=== PATIENT | female | born 1990 | race Caucasian/White ===

== ENCOUNTER 2017-01-24 19:35 | Emergency (ER) | payer OTHER ==
[~2017-01-24] VITALS: Ht 175.3 cm; Wt 91.0 kg
[2017-01-24 19:50] VITALS: BP 127/80
--- NOTE | 2017-01-24 19:53 | ED.ADGEN ---
Adult General Chief Complaint Chief Complaint " I dropped a glass of sweet tea.. and was trying to clean it up.. and stepped on the glass... and got this laceration to my Rt. 4th toe.. I would not get it to stop bleeding... I even used wound glue on it..." HPI HPI Patient is a 26 year old female who presents with above hx and complaints of a 1 centimeter laceration to right fourth toe pad. Injury occurred earlier tonight. Patient is normally healthy. Patient does not remember last tetanus shot. Distal neurovascular intact. No history of coagulopathy. No travel or ill contacts. Review of Systems Review of Systems Constitutional: Denies fever or chills [] Eyes: Denies change in visual acuity, redness, or eye pain [] HENT: Denies nasal congestion or sore throat [] Respiratory: Denies cough or shortness of breath [] Cardiovascular: No additional information not addressed in HPI [] GI: Denies abdominal pain, nausea, vomiting, bloody stools or diarrhea [] : Denies dysuria or hematuria [] Musculoskeletal: Denies back pain or joint pain [] Integument: Denies rash or skin lesions [] complaints of 1 cm laceration to right fourth toe Neurologic: Denies headache, focal weakness or sensory changes [] Endocrine: Denies polyuria or polydipsia [] Family History Family History Noncontributory Current Medications Current Medications Current Medications Medications (Trade) Dose Ordered Sig/Vidal Start Time Stop Time Status Last Admin Dose Admin Diphtheria/ Tetanus/Acell Pertussis (Boostrix) 0.5 ml ONCE ONCE 01/24/17 20:30 01/24/17 20:31 DC 01/24/17 21:01 0.5 ML Hydrocodone Bitartrate/ Ibuprofen (Vicoprofen 7.5-200) 2 tab 1X ONCE 01/24/17 20:45 01/24/17 20:46 DC 01/24/17 20:59 2 TAB Allergies Allergies Allergies Coded Allergies Type Severity Reaction Last Updated Verified Penicillins Allergy Unknown 01/24/17 Yes amoxicillin Allergy Unknown 01/24/17 Yes tramadol Allergy Unknown 01/24/17 Yes Physical Exam Physical Exam Constitutional: Well developed, well nourished, moderate distress, non-toxic appearance. [] HENT: Normocephalic, atraumatic, bilateral external ears normal, oropharynx moist, no oral exudates, nose normal. [] Eyes: PERRLA, EOMI, conjunctiva normal, no discharge. [] Neck: Normal range of motion, no tenderness, supple, no stridor. [] Cardiovascular:Heart rate regular rhythm, no murmur [] Lungs & Thorax: Bilateral breath sounds clear to auscultation [] Abdomen: Bowel sounds normal, soft, no tenderness, no masses, no pulsatile masses. [] Skin: Warm, dry, no erythema, no rash. [] Back: No tenderness, no CVA tenderness. [] Extremities: Right fourth toe tenderness, no cyanosis, no clubbing, ROM intact, no edema. Right fourth toe laceration as per history of present illness. Neurologic: Alert and oriented X 3, normal motor function, normal sensory function, no focal deficits noted. [] Psychologic: Affect normal, judgement normal, mood normal. [] Current Patient Data Vital Signs Vital Signs Date Time Temp Pulse Resp B/P Pulse Ox O2 Delivery O2 Flow Rate FiO2 01/24/17 19:50 97.8 77 18 99 Room Air EKG EKG [] Radiology/Procedures Radiology/Procedures Interpretation of x-ray of right foot shows no obvious glass foreign body . Some edema of right fourth toe .[] Course & Med Decision Making Course & Med Decision Making Pertinent Labs and Imaging studies reviewed. (See chart for details). The wound cleaned extensively before arrival. Does appear to have wound glue that is intact. Wound has good hemostasis. Did reapply wound glue . Patient's tetanus is updated. Patient to wear only White Socks. Patient to follow-up primary care. Patient return if any concerns. Patient take Tylenol and ibuprofen for discomfort. [] Final Impression Final Impression 1. Laceration[] 1 cm Rt. 4th toe Problems: Dragon Disclaimer Dragon Disclaimer This electronic medical record was generated, in whole or in part, using a voice recognition dictation system. ANGELITA TORRES MD Jan 24, 2017 19:53
[2017-01-24] MEDS ORDERED: DIPHTH,PERTUSS(ACELL),TET TOX 0.5 ML DISP.SYRIN. VAX IM ONE (20:30)
[2017-01-24] MEDS ORDERED: HYDROCODON/IBUPROFEN 7.5/200MG TABLET. PO ONE (20:45)
--- NOTE | 2017-01-25 07:39 | RAD ---
Right foot radiographs History: Stepped on glass, laceration to fourth digit. Comparison: None. Findings: AP, lateral, and oblique views of the right foot, 4 images. No acute fracture or dislocation is identified. No radiopaque foreign body is seen. Impression: No acute osseous abnormality identified.
== END 2017-01-24 21:12 | disposition home or self-care (01) ==
LOC: ER 19:35
DX: S91.114A Laceration without foreign body of right lesser toe(s) without damage to nail, initial encounter (principal); Z88.0 Allergy status to penicillin; Z88.1 Allergy status to other antibiotic agents; Z88.6 Allergy status to analgesic agent; W22.8XXA Striking against or struck by other objects, initial encounter; Y93.E9 Activity, other interior property and clothing maintenance; Y99.8 Other external cause status; Y92.89 Other specified places as the place of occurrence of the external cause
CPT/HCPCS: 12001; 73630; 90471; 90715; 99284-25

== ENCOUNTER → 2018-04-15 | Outpatient (CLI) | payer OTHER ==
--- NOTE | 2018-04-15 16:40 | RAD ---
Pelvic ultrasound History: Miscarriage at the end of February. Pelvic pain since Comparison: Ultrasound OB February 14, 2018. Technique: Transabdominal ultrasound was performed to evaluate the uterine fundus. Endovaginal imaging was performed to evaluate optimally the endometrial canal and lower uterine segment. TRANSABDOMINAL IMAGING Findings: The uterus measures 9.9 cm in length and is unremarkable. The endometrium measures approximately 11 mm. Right ovary measures 3.0 x 1.7 x 2.5 cm and is unremarkable. The left ovary measures 1.6 x 3.0 x 2.2 cm and demonstrates a few small follicles. No adnexal masses are identified. No significant free fluid is identified within the pelvis. ENDOVAGINAL IMAGING Findings: The uterus measures 7.6 cm in length and is unremarkable. The endometrium measures 13 mm. Right ovary measures 3.0 x 3.2 x 4.3 cm and demonstrates several follicles. The left ovary measures 1.8 x 2.0 x 3.3 cm and demonstrates small follicles. No adnexal masses are identified. Small amount of proteinaceous free fluid is seen, within physiologic limits. Both ovaries demonstrate normal vascular flow upon Doppler interrogation and are without evidence of torsion. Impression: 1. Unremarkable pelvic ultrasound. No evidence of retained products of conception. Electronically signed by: Osmin Begum MD (04/15/2018 4:36 PM) [place] [id number]
== END | disposition home or self-care (01) ==
LOC: US 14:47
PROVIDERS: ATTEND Family Medicine
DX: O03.9 Complete or unspecified spontaneous abortion without complication (principal); R10.2 Pelvic and perineal pain
CPT/HCPCS: 76830; 76856

== ENCOUNTER 2018-08-05 16:22 | Emergency (ER) | payer OTHER ==
[~2018-08-05] VITALS: Ht 175.3 cm; Wt 95.3 kg
[2018-08-05] MEDS ORDERED: IV NORMAL SALINE 1,000ML 1,000 ML IV ONE (16:45)
--- NOTE | 2018-08-05 16:57 | PHYS DOC ---
Past History Past Medical History: Hypothyroid Past Surgical History: Other Alcohol Use: None Drug Use: None Adult General Chief Complaint Chief Complaint: VAGINAL BLEEDING HPI HPI Patient is a 28 year old female G1 A1 P0 who presents with sitting up heavy vaginal bleeding for the last 3 days. Patient states she usually has heavy vaginal bleeding for the last 3 days she has heavier a bleeding with passing blood clots and needs to change her pad every an hour associated with lower abdominal cramping pain and dizziness and feeling pale. Patient denies and using control and other bleeding problem. Review of Systems Review of Systems Constitutional: Denies fever or chills [] Eyes: Denies change in visual acuity, redness, or eye pain [] HENT: Denies nasal congestion or sore throat [] Respiratory: Denies cough or shortness of breath [] Cardiovascular: No additional information not addressed in HPI [] GI: Reports abdominal pain, nausea, denies vomiting, bloody stools or diarrhea [ ] : Denies dysuria or hematuria [] Musculoskeletal: Denies back pain or joint pain [] Integument: Denies rash or skin lesions [] Neurologic: Denies headache, focal weakness or sensory changes [] Endocrine: Denies polyuria or polydipsia [] All other systems were reviewed and found to be within normal limits, except as documented in this note. Current Medications Current Medications Current Medications Medications (Trade) Dose Ordered Sig/Vidal Start Time Stop Time Status Last Admin Dose Admin Sodium Chloride 1,000 ml @ 1,000 mls/hr 1X ONCE 08/05/18 16:45 08/05/18 17:44 Allergies Allergies Allergies Coded Allergies Type Severity Reaction Last Updated Verified Penicillins Allergy Unknown 01/24/17 Yes amoxicillin Allergy Unknown 01/24/17 Yes tramadol Allergy Unknown 01/24/17 Yes Physical Exam Physical Exam Constitutional: Well developed, well nourished, no acute distress, non-toxic appearance. [] HENT: Normocephalic, atraumatic, oropharynx moist, no oral exudates, nose normal. [] Eyes: PERRLA, EOMI, conjunctiva normal, no discharge. [] Neck: Normal range of motion, no tenderness, supple, no stridor. [] Cardiovascular:Heart rate regular rhythm, no murmur [] Lungs & Thorax: Bilateral breath sounds clear to auscultation [] Abdomen: Bowel sounds normal, soft, no tenderness, no masses, no pulsatile masses. [] Skin: Warm, dry, no erythema, no rash. [] Back: No tenderness, no CVA tenderness. [] Extremities: No tenderness, no cyanosis, no clubbing, ROM intact, no edema. [] Neurologic: Alert and oriented X 3, normal motor function, normal sensory function, no focal deficits noted. [] Psychologic: Affect normal, judgement normal, mood normal. [] Physical Exam by Dr. Jolly: Constitutional: Well developed, well nourished, no acute distress, non-toxic appearance. [] Abdomen: Soft, no tenderness Skin: Warm, dry Extremities: No tenderness, ROM intact Neurologic: Alert and oriented X 3, no focal deficits noted. [] Psychologic: Affect normal, judgement normal, mood normal. [] Current Patient Data Vital Signs Vital Signs Date Time Temp Pulse Resp B/P (MAP) Pulse Ox O2 Delivery O2 Flow Rate FiO2 08/05/18 16:32 98.4 64 18 96 Room Air EKG EKG [] Radiology/Procedures Radiology/Procedures PROCEDURE: US PELVIS Pelvic ultrasound History: Heavy vaginal bleeding for 3 days. Comparison: None. Technique: Transabdominal ultrasound was performed to evaluate the uterine fundus. Endovaginal imaging was performed to evaluate optimally the endometrial canal and lower uterine segment. TRANSABDOMINAL IMAGING Findings: The uterus measures 8.2 cm in length and is unremarkable. The endometrium measures 8 mm. Ovaries are not well seen. ENDOVAGINAL IMAGING Findings: The uterus measures 8.2 cm in length and is unremarkable. The endometrium measures 5 mm. Right ovary measures 1.9 x 3.3 x 2.7 cm and is unremarkable. The left ovary measures 2.3 x 3.4 x 1.5 cm and is unremarkable. No adnexal masses are identified. No significant free fluid is identified within the pelvis. Both ovaries demonstrate normal vascular flow upon Doppler interrogation and are without evidence of torsion. Impression: 1. Interpretation assumes negative beta-hCG. 2. Unremarkable pelvic ultrasound. Electronically signed by: Osmin Begum MD (08/05/2018 6:38 PM) [facility] Course & Med Decision Making Course & Med Decision Making Pertinent Labs and Imaging studies are pending (see chart for details) Evaluation of patient in ER showed 28-year-old female patient with complaining of heavy vaginal bleeding for 2 days. Patient had unremarkable physical exam and labs. Pelvic ultrasound is pending. Patient care transferred to Dr. Jolly at 1800. SHANAE: @1800: Sign out received from Dr. Hein for patient with menorrhagia. Patient awaiting Pelvis US results. Labs reviewed. H/H stable. Patient seen and evaluated by myself. Abdomen non-peritoneal. VS stable. @1835: US without acute process. Patient stable for discharge with outpatient follow-up with PCP/BOXING IN[employer]CTOR. Discussed findings and plan with patient and family, who acknowledge understanding and agreement. Dragon Disclaimer Dragon Disclaimer This electronic medical record was generated, in whole or in part, using a voice recognition dictation system. Departure Departure: Impression: Primary Impression: Menorrhagia Disposition: 01 HOME, SELF-CARE Condition: STABLE Referrals: BENSON SCHMITZ APRN (PCP) Patient Instructions: Menorrhagia, [id number] Scripts Naproxen (NAPROXEN) 500 Mg Tablet.dr 1 TAB PO Q12HR PRN for PAIN, #20 TAB 0 Refills Prov: OSMIN JOLLY DO 08/05/18 Problem Qualifiers Primary Impression: Menorrhagia Menorrahagia type: with regular cycle Qualified Codes: N92.0 - Excessive and frequent menstruation with regular cycle PAYTON HEIN MD Aug 05, 2018 16:57 OSMIN JOLLY DO Aug 05, 2018 18:48
[2018-08-05 17:13] LABS: BASO # 0.1 x10^3/uL (0.0-0.2); BASO % 1 % (0-3); EOS # 0.3 x10^3/uL (0.0-0.7); EOS % 4 % (0-3); HEMATOCRIT 38.2 % (36.0-47.0); HEMOGLOBIN 12.6 g/dL (12.0-15.5); LYMPH # 2.5 x10^3/uL (1.0-4.8); LYMPH % 33 % (24-48); MEAN CORPUSCULAR HEMOGLOBIN 28 pg (25-35); MEAN CORPUSCULAR HGB CONC 33 g/dL (31-37); MEAN CORPUSCULAR VOLUME 84 fL (79-100); MONO # 0.5 x10^3/uL (0.0-1.1); MONO % 7 % (0-9); NEUT # 4.2 x10^3uL (1.8-7.7); NEUT % 55 % (31-73); PLATELET COUNT 269 x10^3/uL (140-400); RED BLOOD COUNT 4.58 x10^6/uL (3.50-5.40); WHITE BLOOD COUNT 7.5 x10^3/uL (4.0-11.0)
[2018-08-05 17:24] LABS: ALBUMIN 4.2 g/dL (3.4-5.0); ALBUMIN/GLOBULIN RATIO 1.2 (1.0-1.7); CREATININE 0.7 mg/dL (0.6-1.0); GFR 101.1; POTASSIUM 3.7 mmol/L (3.5-5.1); TOTAL BILIRUBIN 0.2 mg/dL (0.2-1.0); TOTAL PROTEIN 7.7 g/dL (6.4-8.2)
--- NOTE | 2018-08-05 18:41 | RAD ---
Pelvic ultrasound History: Heavy vaginal bleeding for 3 days. Comparison: None. Technique: Transabdominal ultrasound was performed to evaluate the uterine fundus. Endovaginal imaging was performed to evaluate optimally the endometrial canal and lower uterine segment. TRANSABDOMINAL IMAGING Findings: The uterus measures 8.2 cm in length and is unremarkable. The endometrium measures 8 mm. Ovaries are not well seen. ENDOVAGINAL IMAGING Findings: The uterus measures 8.2 cm in length and is unremarkable. The endometrium measures 5 mm. Right ovary measures 1.9 x 3.3 x 2.7 cm and is unremarkable. The left ovary measures 2.3 x 3.4 x 1.5 cm and is unremarkable. No adnexal masses are identified. No significant free fluid is identified within the pelvis. Both ovaries demonstrate normal vascular flow upon Doppler interrogation and are without evidence of torsion. Impression: 1. Interpretation assumes negative beta-hCG. 2. Unremarkable pelvic ultrasound. Electronically signed by: Osmin Begum MD (08/05/2018 6:38 PM) [facility]
[2018-08-05 18:47] VITALS: BP 109/72
[2018-08-05] MEDS ORDERED: NAPR500T8 PO (18:48)
== END 2018-08-05 18:53 | disposition home or self-care (01) ==
LOC: ER 16:22
DX: N92.0 Excessive and frequent menstruation with regular cycle (principal); R42 Dizziness and giddiness; E03.9 Hypothyroidism, unspecified; Z88.0 Allergy status to penicillin; Z88.1 Allergy status to other antibiotic agents; Z88.6 Allergy status to analgesic agent
CPT/HCPCS: 36415; 76856; 80053; 81025; 85025; 96360; 96361; 99285-25; J7030

== ENCOUNTER 2019-02-23 11:12 | Emergency (ER) | payer OTHER ==
[~2019-02-23] VITALS: Ht 175.3 cm; Wt 98.4 kg
[~2019-02-23 11:12] MED LIST: NAPR500T8 PO
--- NOTE | 2019-02-23 11:35 | PHYS DOC ---
Past History Past Medical History: Hypothyroid Past Surgical History: Other Alcohol Use: Occasionally Drug Use: None Adult General Chief Complaint Chief Complaint: ABDOMINAL PAIN HPI HPI 28-year-old female presents with right lower pelvic pain. Patient states that the pain started after she woke up on Saturday morning. It has been persistent since that time. It is a low sharp cramping pain. She at first thought it might be her menstrual cycle, but she has only had an increase in vaginal discharge. The discharge is clear. She is also had increased urinary frequency, but denies dysuria. She is sexually active. Her last menstrual period was in January. She denies fever or chills. She admits there is a chance she could be . Review of Systems Review of Systems Constitutional: Denies fever or chills [] Eyes: Denies change in visual acuity, redness, or eye pain [] HENT: Denies nasal congestion or sore throat [] Respiratory: Denies cough or shortness of breath [] Cardiovascular: No additional information not addressed in HPI [] GI: Denies abdominal pain, nausea, vomiting, bloody stools or diarrhea [] : Denies dysuria or hematuria [] Musculoskeletal: Denies back pain or joint pain [] Integument: Denies rash or skin lesions [] Neurologic: Denies headache, focal weakness or sensory changes [] Endocrine: Denies polyuria or polydipsia [] All other systems were reviewed and found to be within normal limits, except as documented in this note. Allergies Allergies Allergies Coded Allergies Type Severity Reaction Last Updated Verified Penicillins Allergy Unknown 01/24/17 Yes amoxicillin Allergy Unknown 01/24/17 Yes tramadol Allergy Unknown 01/24/17 Yes Physical Exam Physical Exam Constitutional: Well developed, well nourished, no acute distress, non-toxic appearance. [] HENT: Normocephalic, atraumatic, bilateral external ears normal, oropharynx moist, no oral exudates, nose normal. [] Eyes: PERRLA, EOMI, conjunctiva normal, no discharge. [] Neck: Normal range of motion, no tenderness, supple, no stridor. [] Cardiovascular:Heart rate regular rhythm, no murmur [] Lungs & Thorax: Bilateral breath sounds clear to auscultation [] Abdomen: Bowel sounds normal, soft, no tenderness, no masses, no pulsatile masses. [] Skin: Warm, dry, no erythema, no rash. [] Back: No tenderness, no CVA tenderness. [] Extremities: No tenderness, no cyanosis, no clubbing, ROM intact, no edema. [] Neurologic: Alert and oriented X 3, normal motor function, normal sensory function, no focal deficits noted. [] Psychologic: Affect normal, judgement normal, mood normal. : Normal external genitalia. Vaginal exam showed moderate, white, milky discharge of thin consistency.[] Current Patient Data Vital Signs Vital Signs Date Time Temp Pulse Resp B/P (MAP) Pulse Ox O2 Delivery O2 Flow Rate FiO2 02/23/19 11:20 97.6 70 16 98 Room Air EKG EKG [] Radiology/Procedures Radiology/Procedures [] Course & Med Decision Making Course & Med Decision Making Pertinent Labs and Imaging studies reviewed. (See chart for details) The patient's wet prep is positive for yeast and bacterial vaginosis. I will treat her in the ED with Diflucan and Flagyl. Her GC chlamydia is pending. She is stable for discharge at this time. [] Dragon Disclaimer Dragon Disclaimer This electronic medical record was generated, in whole or in part, using a voice recognition dictation system. Departure Departure: Impression: Primary Impression: Vaginal yeast infection Additional Impression: Bacterial vaginosis Disposition: 01 HOME, SELF-CARE Condition: STABLE Referrals: BENSON SCHMITZ APRN (PCP) Patient Instructions: Bacterial Vaginosis, [id number] Problem Qualifiers BERONICA FAYE DO February 23, 2019 11:35
[2019-02-23 12:07] LABS: BILIRUBIN,URINE NEG (NEG); CLARITY,URINE HAZY; COLOR,URINE AMBER; GLUCOSE,URINE NEG (NEG); NITRITE,URINE NEG (NEG); UROBILINOGEN,URINE 0.2 mg/dL (0.2 mg/dL)
[2019-02-23 12:08] LABS: BACTERIA,URINE FEW /HPF (0-FEW); SQUAMOUS EPITHELIAL CELL,UR FEW /LPF
[2019-02-23] MEDS ORDERED: metroNIDAZOLE 500 MG TABLET PO ONE (13:15)
[2019-02-23] MEDS ORDERED: FLUCONAZOLE 100 MG TABLET. PO ONE (13:15)
[2019-02-23 13:40] VITALS: BP 121/58
[2019-02-24 14:08] LABS: CHLAMYDIA PROBE Negative (Negative)
== END 2019-02-23 13:41 | disposition home or self-care (01) ==
LOC: ER 11:12
DX: B37.3 Candidiasis of vulva and vagina (principal); N76.0 Acute vaginitis; B96.89 Other specified bacterial agents as the cause of diseases classified elsewhere; E03.9 Hypothyroidism, unspecified; Z88.0 Allergy status to penicillin; Z88.1 Allergy status to other antibiotic agents; Z88.6 Allergy status to analgesic agent
CPT/HCPCS: 36415; 81001; 81025; 87491; 87591; 99284; Q0111